=== PATIENT | female | born 1965 | race Caucasian/White ===

== ENCOUNTER 2017-12-10 12:14 | Day surgery (SDC) | payer OTHER ==
[2017-12-10] MEDS ORDERED: PROPOFOL 20 ML (15:08)
== END 2017-12-10 17:30 | disposition home or self-care (01) ==
LOC: GIL 12:14
DX: Z12.11 Encounter for screening for malignant neoplasm of colon (principal); E66.9 Obesity, unspecified; Z68.26 Body mass index [BMI] 26.0-26.9, adult
CPT/HCPCS: 45378; 84703